=== PATIENT | female | born 1970 | race Caucasian/White ===

== ENCOUNTER → 2016-08-02 | Outpatient (CLI) | payer BC ==
[~2016-08-02] MED LIST: MULT-552
[2016-08-02 16:19] LABS: ADD SCAN DIFF NO
[2016-08-02 16:23] LABS: ADD UMIC YES; URINE BILIRUBIN (Dip) NEGATIVE (NEGATIVE); URINE BLOOD (Dip) 1+ (NEGATIVE); URINE COLOR LT. YELLOW (YELLOW); URINE GLUCOSE (Dip) NEGATIVE (NEGATIVE); URINE KETONES (Dip) NEGATIVE (NEGATIVE); URINE LEUKOCYTE ESTERASE (Dip) NEGATIVE (NEGATIVE); URINE NITRITE (Dip) NEGATIVE (NEGATIVE); URINE TOTAL PROTEIN (Dip) 2+ (NEGATIVE); URINE UROBILINOGEN (Dip) 0.2 E.U./dL (0.1-1.0)
[2016-08-02 16:25] LABS: BASOPHIL # 0.1 10^3/ul (0.0-0.1); EOSINOPHILS # 0.2 10^3/ul (0.0-0.5); EOSINOPHILS % 2.5 % (0.0-7.0); HEMATOCRIT 37.5 % (37.0-47.0); HEMOGLOBIN 12.4 g/dl (12.0-16.0); LYMPHOCYTES # 2.9 10^3/ul (0.8-2.9); LYMPHOCYTES % 29.8 % (15.0-51.0); MEAN CORPUSCULAR HEMOGLOBIN 30.2 pg (29.0-33.0); MEAN CORPUSCULAR HGB CONC 33.1 g/dl (32.0-37.0); MEAN CORPUSCULAR VOLUME 91.5 fl (82.0-101.0); MEAN PLATELET VOLUME 9.1 fl (7.4-10.4); MONOCYTE # 0.6 10^3/ul (0.3-0.9); MONOCYTES % 6.4 % (0.0-11.0); NEUTROPHIL # 5.8 10^3/ul (1.6-7.5); NEUTROPHILS % 59.7 % (39.0-77.0); PLATELET COUNT 278 10^3/UL (140-415); WHITE BLOOD COUNT 9.7 10^3/ul (4.8-10.8)
[2016-08-02 16:36] LABS: ALBUMIN 3.8 g/dl (3.3-4.9)
--- NOTE | 2016-08-02 16:36 | RADRPT ---
PROCEDURE: XR Chest. CLINICAL INDICATION: Anemia, cough TECHNIQUE: PA and lateral views of the chest were obtained COMPARISON: 12/30/2013 FINDINGS: The heart and mediastinum are within normal limits. The lungs are clear. There is no pleural effusion or pneumothorax. The bones and soft tissues are unremarkable. RPTAT: AA IMPRESSION: No acute disease. .Ralph Torres MD, MD Date Time Electronically viewed and signed by .Ralph Torres MD, on 08/02/2016 16:36 .S/
[2016-08-02 16:37] LABS: POTASSIUM 3.6 mmol/L (3.5-5.1)
[2016-08-02 16:38] LABS: SQUAMOUS EPITHELIAL CELL,UR MODERATE; URINE RBCS 0-2 /HPF (0)
[2016-08-02 16:39] LABS: ALBUMIN/GLOBULIN RATIO 1.22; BILIRUBIN,INDIRECT 0.2 mg/dl (0-1.1); BILIRUBIN,TOTAL 0.2 mg/dl (0.2-1.3); CREATININE 0.86 mg/dl (0.44-1.00); TOTAL PROTEIN 6.9 g/dl (6.1-8.1)
[2016-08-02 16:40] LABS: CALCIUM 8.5 mg/dl (8.4-10.2); INR 0.94; PROTIME 12.6 Sec (12.2-14.2)
--- NOTE | 2016-08-03 20:32 | RADRPT ---
Vent Rate: 64 bpm RR Interval: 0 msec MD Interval: 154 msec QRS Duration: 70 msec QT Interval: 408 msec QTC Interval: 420 msec P-R-T [place]: 64 - 45 - 30 degrees Normal sinus rhythm Normal ECG Electronically Signed By: Liu Zhang [id number]
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
== END | disposition home or self-care (01) ==
LOC: LAB 15:11
PROVIDERS: ATTEND Internal Medicine
DX: D64.9 Anemia, unspecified (principal); D68.9 Coagulation defect, unspecified; J20.9 Acute bronchitis, unspecified; R07.89 Other chest pain
CPT/HCPCS: 71020; 80053; 81001; 81003; 85025; 85610; 85730; 93005

== ENCOUNTER 2016-08-09 08:34 | Day surgery (SDC) | payer BC ==
[2016-08-09] VITALS (13 sets, daily range): BP systolic 136–175; BP diastolic 83–101; PULSE 59–114; RESP 14–18; Ht 154.9 cm; Wt 64.0 kg
[~2016-08-09] VITALS: Ht 154.9 cm; Wt 64.0 kg
[~2016-08-09 08:34] MED LIST changes: +DESFLURANE 15 MIN ONE; +EPHEDrine SULFATE 50 MG/5 ML SYG ONE
[2016-08-09] MEDS ORDERED: LATA2.5D2 BOTH EYES (09:52)
[2016-08-09] MEDS ORDERED: CEFAZOLIN 2 GM/50 ML (PMX) 50 ML IVPB ONE (10:00)
[2016-08-09] MEDS ORDERED: LACTATED RINGER'S 1,000 ML IV SCH ×2 (10:00→13:00)
[2016-08-09] MEDS ORDERED: BUPIVACAINE 0.25%/EPI (SDV) 30 ML INJ ONE (10:54)
[2016-08-09] MEDS ORDERED: PROPOFOL 20 ML ONE (11:24)
[2016-08-09] MEDS ORDERED: LIDOCAINE 100 MG SYRINGE ONE (11:24)
[2016-08-09] MEDS ORDERED: DEXAMETHASONE 4 MG/ML 1 ML INJ ONE (11:25)
[2016-08-09] MEDS ORDERED: MIDAZOLAM 1 MG/ML 2 ML INJ ONE (11:25)
[2016-08-09] MEDS ORDERED: FENTAnyl 50 MCG/ML VIAL ONE (11:25)
[2016-08-09] MEDS ORDERED: ONDANSETRON 4 MG INJ ONE (11:25)
--- NOTE | 2016-08-09 11:30 | HPN ---
Date/Time of Note Date/Time of Note DATE: 08/09/16 TIME: 11:30 Interval H&P Admission Note Pt. seen H&P reviewed: No system changes COLE CALVERT MD Aug 09, 2016 11:30
[2016-08-09] MEDS ORDERED: KETOROLAC 30 MG INJ ONE (11:32)
[2016-08-09] MEDS ORDERED: BUPIVACAINE 0.5%/EPI (SDV) 30 ML INJ ONE (11:33)
[2016-08-09] MEDS ORDERED: CEFAZOLIN 1 GM INJ ONE (11:34)
[2016-08-09] MEDS ORDERED: LIDOCAINE 1% (STERILE-PAK) 30 ML INJ ONE (11:47)
[2016-08-09] MEDS ORDERED: EPHEDrine SULFATE 50 MG/5 ML SYG IV PRN (12:00)
[2016-08-09] MEDS ORDERED: HYDROmorphONE (0.2 MG/ML) 10ML SYG IV PRN ×3 (12:00)
[2016-08-09] MEDS ORDERED: DIPHENHYDRAMINE 50 MG INJ IV PRN (12:00)
[2016-08-09] MEDS ORDERED: MEPERIDINE 25 MG INJ IV PRN (12:00)
[2016-08-09] MEDS ORDERED: MIDAZOLAM 1 MG/ML 2 ML INJ IV PRN (12:00)
[2016-08-09] MEDS ORDERED: TRIMETHOBENZAMIDE 100 MG/ML VIAL IM PRN (12:00)
[2016-08-09] MEDS ORDERED: FENTAnyl 50 MCG/ML VIAL IV PRN ×3 (12:00)
[2016-08-09] MEDS ORDERED: ONDANSETRON 4 MG INJ IV PRN ×2 (12:00→13:00)
[2016-08-09] MEDS ORDERED: hydrALAzine 20 MG INJ IV PRN (12:00)
[2016-08-09] MEDS ORDERED: LABETALOL HCL 20MG INJ IV PRN (12:00)
[2016-08-09] MEDS ORDERED: HYDROCODONE/APAP (5/325) TAB PO PRN ×2 (13:00)
[2016-08-09] MEDS ORDERED: morphine 2 MG INJ IV PRN (13:00)
--- NOTE | 2016-08-09 21:13 | OPR ---
Date/Time of Note Date/Time of Note DATE: 08/09/16 TIME: 21:07 Operative Report Procedure Date: Aug 09, 2016 Preoperative Diagnosis Forehead lesion Postoperative Diagnosis Skull bases bony lesion, 2 x 1 cm Operation Performed 1. Excisional and ostectomy of right forehead skull bony lesion, 2 x 1 cm 2. Local anesthetic injection, [address] Surgeon: COLE CALVERT MD Anesthesia: general, other (Local) Anesthesiologist: Deandre Hatch M.D. Estimated Blood Loss: 0 - 10 ml's Specimens Bony lesion Tubes/Drains None Complications: None Pt Condition Post Procedure: stable Disposition: PACU Indications 46-year-old female with a bony lesion on right forehead here for excision. Risks include but are not limited to bleeding, infection, abscess, seroma, chronic pain, wound, skull osteomyelitis, need for re-operations or further surgeries, [place], stroke, PE, DVT, pneumonia, organ failures, or even . Procedure Description Patient was brought in, placed supine on the operating table, and after induction of anesthesia, all pressure points were well-padded, and she was prepped and draped in usual sterile fashion. Preoperative antibiotics administered. Local anesthetic injected at surgical site. Incision was made in the skin line and extended to the skull where the bony lesion was apparent. Using rondure most of the specimen was excised and sent to pathology. [place] was then used to smooth out the surface of the skull. Hemostasis was obtained with electrocautery. Wound was thoroughly irrigated and closed in multiple layers with 2-0 Vicryl deep followed by 4-0 Monocryl subcuticular and then eventually Dermabond. Patient was extubated transferred to recovery in stable condition all counts were correct at the end the operation 2. Copies To: CC: EMILI DORADO MD, SAMUEL MD Aug 09, 2016 21:12
== END 2016-08-09 14:30 | disposition home or self-care (01) ==
LOC: SDS 08:34
PROVIDERS: ATTEND Surgery
DX: M89.9 Disorder of bone, unspecified (principal)
CPT/HCPCS: 21026; 84703; J0690; J1100; J1885; J2001; J2250; J2405; J3010

== ENCOUNTER 2017-04-23 09:47 | Emergency (ER) | payer BC ==
[~2017-04-23] VITALS: Ht 154.9 cm; Wt 63.6 kg
[~2017-04-23 09:47] MED LIST changes: -DESFLURANE 15 MIN ONE; -EPHEDrine SULFATE 50 MG/5 ML SYG ONE; +LATA2.5D2 BOTH EYES
[2017-04-23 09:50] VITALS: Ht 154.9 cm; Wt 63.6 kg
[2017-04-23] MEDS ORDERED: SOD CHLORIDE 0.9% 1,000 ML IV STA (10:15)
[2017-04-23] MEDS ORDERED: morphine 4 MG/ML VIAL IV STA ×2 (10:15→11:57)
[2017-04-23] MEDS ORDERED: ONDANSETRON 4 MG INJ IV STA ×2 (10:15→11:57)
[2017-04-23 10:53] LABS: BASOPHIL # 0.1 10^3/ul (0.0-0.1); BASOPHILS % 1.2 % (0.0-2.0); EOSINOPHILS # 0.2 10^3/ul (0.0-0.5); EOSINOPHILS % 2.6 % (0.0-7.0); HEMATOCRIT 40.8 % (37.0-47.0); HEMOGLOBIN 13.3 g/dl (12.0-16.0); LYMPHOCYTES # 1.9 10^3/ul (0.8-2.9); LYMPHOCYTES % 22.3 % (15.0-51.0); MEAN CORPUSCULAR HEMOGLOBIN 30.4 pg (29.0-33.0); MEAN CORPUSCULAR HGB CONC 32.6 g/dl (32.0-37.0); MEAN CORPUSCULAR VOLUME 93.2 fl (82.0-101.0); MEAN PLATELET VOLUME 9.6 fl (7.4-10.4); MONOCYTE # 0.6 10^3/ul (0.3-0.9); MONOCYTES % 6.7 % (0.0-11.0); NEUTROPHIL # 5.5 10^3/ul (1.6-7.5); NEUTROPHILS % 66.1 % (39.0-77.0); PLATELET COUNT 292 10^3/UL (140-415); RED BLOOD COUNT 4.38 10^6/ul (4.20-5.40); RED CELL DISTRIBUTION WIDTH 12.9 % (11.5-14.5); WHITE BLOOD COUNT 8.3 10^3/ul (4.8-10.8)
[2017-04-23 11:03] LABS: ADD UMIC YES; UR ASCORBIC ACID NEGATIVE (NEGATIVE); UR BILIRUBIN (Dip) NEGATIVE (NEGATIVE); UR BLOOD (Dip) NEGATIVE (NEGATIVE); UR CLARITY CLEAR (CLEAR); UR COLOR YELLOW (YELLOW); UR GLUCOSE (Dip) NEGATIVE (NEGATIVE); UR KETONES (Dip) NEGATIVE (NEGATIVE); UR LEUKOCYTE ESTERASE (Dip) NEGATIVE Leu/ul (NEGATIVE); UR NITRITE (Dip) NEGATIVE (NEGATIVE); UR RBC 1 /HPF (0-5); UR SPECIFIC GRAVITY (Dip) 1.012 (1.003-1.030); UR SQUAMOUS EPITHELIAL CELL FEW /HPF (FEW); UR TOTAL PROTEIN (Dip) 2+ mg/dl (NEGATIVE); UR UROBILINOGEN (Dip) NEGATIVE (NEGATIVE)
[2017-04-23 11:11] LABS: ALBUMIN 4.1 g/dl (3.3-4.9); ALBUMIN/GLOBULIN RATIO 1.36; BILIRUBIN,INDIRECT 0.5 mg/dl (0-1.1); BILIRUBIN,TOTAL 0.5 mg/dl (0.2-1.3); CALCIUM 8.6 mg/dl (8.4-10.2); CREATININE 0.94 mg/dl (0.44-1.00); POTASSIUM 3.9 mmol/L (3.5-5.1); TOTAL PROTEIN 7.1 g/dl (6.1-8.1)
--- NOTE | 2017-04-23 11:42 | RADRPT ---
PROCEDURE: CT ABDOMEN AND PELVIS WITHOUT CONTRAST. CLINICAL INDICATION: Abdominal pain TECHNIQUE: CT scan of the abdomen and pelvis without contrast was performed on a multidetector hig h-resolution CT scanner. The patient was scanned without intravenous contrast. Coronal and sagittal reformatted images were obtained from the axial source images. Images were reviewed on a high-resol eriQoo PACS workstation. The total exam CTDI equals 8.7 mGy and the total exam DLP equals 444.2 mGy-c m. One or more of the following dose reduction techniques were used: Automated exposure control. Adjustment of the mA and/or kV according to patient size. Use of iterative reconstruction technique. DICOM images are available COMPARISON: None FINDINGS: CT abdomen: The lung bases are clear. The heart size is within limits. There is no significant pericardial effus ion. Hepatic morphology is within limits. No gross contour deforming masses. Gallbladder is unremarkable. No evidence of intrahepatic or extrahepatic biliary dilatation. The spleen and pancreas are within normal limits. Both adrenal glands are within normal limits. Both kidneys are in normal anatomic position. No evidence of obstruction or hydronephrosis. No gross renal/ureteric calculi. The visualized GI tract demonstrate normal caliber loops of small and large bowel. No evidence of yahaira wel obstruction. The appendix is within normal limits. The unenhanced aorta is within normal limits. There is no significant retroperitoneal lymphadenopath y. CT pelvis: The bladder is within normal limits. The uterus is markedly enlarged measuring 16.6 x 8.9 x 8.4 cm, likely consistent with a leiomyomatous uterus. There is a large exophytic leiomyoma measuring 6.7 x 6.3 cm within the fundus of the uterus. Small amount of free fluid within the pelvis. There is a lef t adnexal mass measuring 3.4 x 3.0 cm, which also may represent an leiomyoma. The rectosigmoid colon is within normal limits. No significant pelvic lymphadenopathy. The visualized osseous structures appears to within normal limits. IMPRESSION: 1. Enlarged uterus, measuring 16.6 x 8.9 x 8.4 cm, likely consistent with a leiomyomatous uterus. Th ere is a large exophytic leiomyoma measuring 6.7 x 6.3 cm within the fundus of the uterus. There is also a 3.4 x 3.0 cm left adnexal mass, which also may represent an exophytic leiomyoma. Consider fol low-up MRI of the pelvis. 2. No evidence of acute intra-abdominal/pelvic inflammatory process. No obstruction. The appendix wi thin limits. 3. Small amount nonspecific free fluid within the pelvis. RPTAT: AAPP Physician Mic Date Time Electronically viewed and signed by Merced Cortez Physician on 04/23/2017 11:41 FLORY/
[2017-04-23] MEDS ORDERED: HYDR-906 PO (11:49)
[2017-04-23] MEDS ORDERED: ONDA4TAB14 PO (11:49)
--- NOTE | 2017-04-23 12:48 | RADRPT ---
PROCEDURE: US Pelvis. CLINICAL INDICATION: pelvic pain TECHNIQUE: Multiple sonographic images of the pelvis were obtained utilizing a transabdominal and endovaginal technique. The images were reviewed on a PACS workstation. COMPARISON: CT 04/23/2017; US PELVISA 08/12/2009 FINDINGS: The uterus is enlarged in size with a heterogeneous appearance of the myometrium. The uterus measur es 12.2 x 8.0 x 8.6 cm. There are multiple heterogeneous masses in the uterus. There is an intramura l mass in the body measuring 6.5 x 4.2 cm. There is an exophytic mass in the right side of the uteru s measuring 6.7 x 5.3 cm. The endometrial stripe is not seen. The ovaries are not seen. No free fluid is present within the pelvis. RPTAT: AA IMPRESSION: Enlarged uterus with multiple large fibroids. Large exophytic mass in the right side of the uterus s een on ultrasound, suspicious for a exophytic fibroid. Further evaluation with MRI of the pelvis wit h contrast is recommended. Ovaries and endometrium not visualized. .Ralph Torres MD, MD Date Time Electronically viewed and signed by .Ralph Torres MD, MD on 04/23/2017 12:48 .S/
[2017-04-23] MEDS ORDERED: HYDROmorphONE 0.5 MG/0.5 ML SYG IV STA ×2 (12:56→15:24)
--- NOTE | 2017-04-23 17:58 | RADRPT ---
PROCEDURE: MR Pelvis with and without IV contrast CLINICAL INDICATION: Pelvic pain. Fibroid uterus. TECHNIQUE: MRI of the pelvis was performed on a 1.5 Lou MR scanner. The patient was scanned both before and following the uncomplicated intravenous administration of 10 ml of Magnevist. COMPARISON: Pelvic ultrasound 04/23/2017./pelvis CT 04/23/2017. FINDINGS: Patient motion artifacts on some of the images. Postoperative changes present. The uterus is enlarged and contains multiple heterogeneous masses thought to be leiomyomata. The lar gest uterine mass measures approximately 6.8 x 5.5 x 6.5 cm, is in the right side of the uterus, and displaces/deforms the endometrium. One of these uterine masses is subserosal in the fundus and fran ures 5.5 x 4.8 x 5.5 cm. 3.4 x 2.2 x 3.4 cm enhancing slightly long T2 finding most likely is subser osal from the left uterine fundus abuts what most likely is the left ovary which contains a 1.9 x 1. 4 x 1.7 cm cyst. 3.4 x 2.4 x 2.8 cm enhancing soft tissue finding is inseparable from the right lower uterine segment and could be a subserosal versus pedunculated leiomyoma; this finding has restricted diffusion. Alt ernatively, it could represent a right adnexal mass. 5.7 x 2.3 x 5.9 cm non-enhancing abnormality posterior to the right uterus is heterogeneous includin g areas of short T2 signal (possible blood products) as well as two or three peripheral small cysts; what may represent the right fallopian tube is inseparable from this finding. This abnormality abut s sigmoid colon but is not unequivocally a bowel loop. Pelvic distortion secondary to the uterine masses. The cervix is unremarkable except for a few small Nabothian cysts.. The partially distended bladder is compressed by the enlarged uterus and soft tissue finding insepar able from the right lower uterine segment. Small amount of free pelvic fluid and small amount of fluid in both pericolic gutters. No enlarged l ymph nodes identified. No suspicious osseous abnormality detected. IMPRESSION: 1. Enlarged uterus containing multiple masses which likely are leiomyomata. Small amount of free pel altaf fluid as well as small amount of fluid and both pericolic gutters. 2. Nonenhancing abnormality that contains small peripheral cysts is in the right pelvis posterior t o the uterus; differential considerations include right ovarian torsion as well as other adnexal mas s; this is less likely to be related to bowel. 3. Soft tissue enhancing finding inseparable from the lower right uterine segment probably represent s pedunculated versus subserosal leiomyoma; alternatively, this could represent right adnexal mass o r (less likely) [place] right ovary. 4. What most likely represents the left ovary contains a small cyst and abuts the presumed left fun cars[place] subserosal leiomyoma. Report called to the emergency room physician caring for the patient on 04/23/2017 at 1745 hours. RPTAT: TT Yessy Moya Physician Date Time Electronically viewed and signed by Yessy Moya Physician on 04/23/2017 17:58 JS/
--- NOTE | 2017-04-23 19:19 | ERD ---
ER Documentation Chief Complaint Chief Complaint right lower abdominal pain and vomiting since this morning HPI 46 year old female with history of fibroids and myomectomy presents to the emergency department complaining of severe sharp onset right lower quadrant pelvic pain since this morning. Patient states she had one episode of nonbilious nonbloody vomiting. Denies fevers, diarrhea. ROS All systems reviewed and are negative except as per history of present illness. Medications Home Meds Active Scripts Ondansetron (Ondansetron Odt) 4 Mg Tab.rapdis, 4 MG PO Q6H Y for NAUSEA AND/OR VOMITING, #10 TAB Prov:FAVIAN BANKS PA-C 04/23/17 Hydrocodone/Acetaminophen ([place] 5-325 Tablet) 1 Each Tablet, 1 TAB PO Q6H Y for PAIN, #30 TAB Prov:FAVIAN BANKS PA-C 04/23/17 Reported Medications Latanoprost (Latanoprost) 2.5 Ml Drops, 1 DROP BOTH EYES QHS, #1 BOTTLE 08/09/16 Multivitamins* (Once Daily*) 1 Tab Tablet 07/11/10 Allergies Allergies: Coded Allergies: No Known Allergy (Verified , 08/09/16) PMhx/Soc History of Surgery: Yes (MYOMECTOMY) Anesthesia Reaction: No Hx Neurological Disorder: No Hx Respiratory Disorders: No Hx Cardiac Disorders: No Hx Psychiatric Problems: No Hx Miscellaneous Medical Probl: Yes (HIGH CHOLESTEROL) Hx Alcohol Use: No Hx Substance Use: No Hx Tobacco Use: No Smoking Status: Never smoker Physical Exam Vitals Vital Signs Date Time Temp Pulse Resp B/P Pulse Ox O2 Delivery O2 Flow Rate FiO2 04/23/17 09:50 97.6 69 18 153/87 100 Physical Exam GENERAL: well-developed/well-nourished, in no apparent distress, non-toxic appearing HENT: NC/AT, moist mucous membranes EYES: Conjunctiva normal NECK: Supple, no lymphadenopathy PULM: CTA bilaterally, no rales, rhonchi, or wheezing heard CV: Normal S1S2, RRR, good capillary refill GI: Soft, non-distended, tender to palpation RLQ and pelvic region bilaterally Normal bowel sounds, no masses or organomegaly felt on exam No gross peritonitis, no bruits Negative Rovsing, negative [place], negative McBurney's point, Negative CVAT BACK: No masses EXT: No clubbing, cyanosis, or edema NEURO: Alert and Orientated SKIN: Intact, normal turgor PSYCH: Normal mood and mentation Result Diagram: 04/23/17 1025 04/23/17 1025 Results 24 hrs Laboratory Tests Test 04/23/17 10:25 White Blood Count 8.310^3/ul Red Blood Count 4.3810^6/ul Hemoglobin 13.3g/dl Hematocrit 40.8% Mean Corpuscular Volume 93.2fl Mean Corpuscular Hemoglobin 30.4pg Mean Corpuscular Hemoglobin Concent 32.6g/dl Red Cell Distribution Width 12.9% Platelet Count 30428^3/UL Mean Platelet Volume 9.6fl Neutrophils % 66.1% Lymphocytes % 22.3% Monocytes % 6.7% Eosinophils % 2.6% Basophils % 1.2% Nucleated Red Blood Cells % 0.0/100WBC Neutrophils # 5.510^3/ul Lymphocytes # 1.910^3/ul Monocytes # 0.610^3/ul Eosinophils # 0.210^3/ul Basophils # 0.110^3/ul Nucleated Red Blood Cells # 0.010^3/ul Urine Color YELLOW Urine Clarity CLEAR Urine pH 6.0 Urine Specific [place] 1.012 Urine Ketones NEGATIVEmg/dL Urine Nitrite NEGATIVEmg/dL Urine Bilirubin NEGATIVEmg/dL Urine Urobilinogen NEGATIVEmg/dL Urine Leukocyte Esterase NEGATIVELeu/ul Urine Microscopic RBC 1/HPF Urine Microscopic WBC 2/HPF Urine Squamous Epithelial Cells FEW/HPF Urine Hemoglobin NEGATIVEmg/dL Urine Glucose NEGATIVEmg/dL Urine Total Protein 2+mg/dl Sodium Level 139mmol/L Potassium Level 3.9mmol/L Chloride Level 103mmol/L Carbon Dioxide Level 25mmol/L Anion Gap 15 Blood Urea Nitrogen 14mg/dl Creatinine 0.94mg/dl Glucose Level 98mg/dl Calcium Level 8.6mg/dl Total Bilirubin 0.5mg/dl Direct Bilirubin 0.00mg/dl Indirect Bilirubin 0.5mg/dl Aspartate Amino Transf (AST/SGOT) 15IU/L Alanine Aminotransferase (ALT/SGPT) 26IU/L Alkaline Phosphatase 99IU/L Total Protein 7.1g/dl Albumin 4.1g/dl Globulin 3.00g/dl Albumin/Globulin Ratio 1.36 Lipase 161U/L Current Medications Medications (Trade) Dose Ordered Sig/Renetta Route PRN Reason Start Time Stop Time Status Last Admin Dose Admin Sodium Chloride (NS) 1,000 ml @ 1,000 mls/hr Q1H STAT IV 04/23/17 10:15 04/23/17 11:14 DC 04/23/17 10:25 Morphine Sulfate (morphine) 4 mg ONCE STAT IV 04/23/17 10:15 04/23/17 10:17 DC 04/23/17 10:25 Ondansetron HCl (Zofran Inj) 4 mg ONCE STAT IV 04/23/17 10:15 04/23/17 10:17 DC 04/23/17 10:25 Morphine Sulfate (morphine) 4 mg ONCE STAT IV 04/23/17 11:57 04/23/17 11:58 DC 04/23/17 12:03 Ondansetron HCl (Zofran Inj) 4 mg ONCE STAT IV 04/23/17 11:57 04/23/17 11:58 DC 04/23/17 12:02 Hydromorphone HCl (Dilaudid) 0.5 mg ONCE STAT IV 04/23/17 12:56 04/23/17 12:57 DC 04/23/17 13:02 Hydromorphone HCl (Dilaudid) 0.5 mg ONCE STAT IV 04/23/17 15:24 04/23/17 15:25 DC 04/23/17 15:29 Procedures/MDM 46 year old female with history of fibroids and myomectomy presents to the emergency department with severe right lower quadrant likely due to large multiple fibroids and right ovarian torsion cannot be excluded at this time. First pelvic ultrasound was done and cannot visualize ovaries and radiologist suggested MRI, there was ,nonenhancing abnormality that contains small peripheral cysts is in the right pelvis posterior to the uterus which is likely adnexal vs torsion. I have consulted OB laborist who suggested repeat pelvic ultrasound and they will also evaluate patient. Patient will be passed down to for further follow up. In the ED, patient's pain. Lab work was drawn. CBC did not show any evidence of leukocytosis or anemia. CMP did not show any evidence of renal, liver, or electrolyte abnormalities. Lipase was normal. UA did not show any evidence of hemoglobin or urinary tract infection. Pelvic ultrasound Enlarged uterus with multiple large fibroids. Large exophytic mass in the right side of the uterus seen on ultrasound, suspicious for a exophytic fibroid. Further evaluation with MRI of the pelvis with contrast is recommended. Ovaries and endometrium not visualized. CT abd and pelvis 1. Enlarged uterus, measuring 16.6 x 8.9 x 8.4 cm, likely consistent with a leiomyomatous uterus. There is a large exophytic leiomyoma measuring 6.7 x 6.3 cm within the fundus of the uterus. There is also a 3.4 x 3.0 cm left adnexal mass, which also may represent an exophytic leiomyoma. Consider follow-up MRI of the pelvis. 2. No evidence of acute intra-abdominal/pelvic inflammatory process. No obstruction. The appendix within limits. 3. Small amount nonspecific free fluid within the pelvis. MRI with contrast 1. Enlarged uterus containing multiple masses which likely are leiomyomata. Small amount of free pelvic fluid as well as small amount of fluid and both pericolic gutters. 2. Nonenhancing abnormality that contains small peripheral cysts is in the right pelvis posterior to the uterus; differential considerations include right ovarian torsion as well as other adnexal mass; this is less likely to be related to bowel. 3. Soft tissue enhancing finding inseparable from the lower right uterine segment probably represents pedunculated versus subserosal leiomyoma; alternatively, this could represent right adnexal mass or (less likely) [place] right ovary. 4. What most likely represents the left ovary contains a small cyst and abuts the presumed left fundal subserosal leiomyoma. Report called to the emergency room physician caring for the patient on 2016 at 1745 hours. Departure Diagnosis: Primary Impression: Leiomyoma Additional Impression: Abdominal pain Condition: Stable Patient Instructions: Abdominal Pain, What Are Fibroids?, Uterine Fibroids Additional Instructions: FOLLOW UP WITH YOUR PRIMARY CARE PHYSICIAN TOMORROW.Return to this facility if you are not improving as expected. Take all medicines as directed. Return to this facility if you are not improving as expected. You have been given a medicine which may cause drowsiness.DO NOT DRIVE OR OPERATE DANGEROUS MACHINERY while taking this medicine! FAVIAN BANKS PA-C Apr 23, 2017 19:06
[2017-04-23 19:39] VITALS: BP 150/89; PULSE 78; RESP 18; TEMP 98.3
[2017-04-23] MEDS ORDERED: HYDROmorphONE 1 MG/ML SYG IV STA (19:41)
--- NOTE | 2017-04-23 19:46 | RADRPT ---
PROCEDURE: US Pelvis. CLINICAL INDICATION: Pelvic pain TECHNIQUE: Transabdominal and transvaginal pelvic ultrasound are performed. COMPARISON: Dictated report from ultrasound dated 2009 FINDINGS: The uterus is normal in heterogeneous and anteverted in orientation. The uterus measures 11.7 x 7.2 x 9.9 cm. There are multiple large fibroids. Largest fibroid measures 6.7 x 5.5 x 6 cm. Compared t o previous dictation these fibers of increased in size. The visualized segments of the endometrium i nterval 1.0 cm. The right ovary is not definitively seen. There is a 3 .4 cm structure in the right adnexal region w hich may represent exophytic fibroid versus ovary. A normal left ovary is identified with normal Dop pler flow. The left ovary measures 3.2 x 2.8 x 2.4 cm. There is complex free fluid in the right megan pelvis with debris/clot within it. IMPRESSION: 1. Enlarged fibroid uterus. Compared to the dictation from 2010, the fibroids are substantially lar gavino 2. Mass-like density in the right adnexal region which may represent an exophytic fibroid or atypic al ovary. Pelvic MRI is recommended for further evaluation. 3. Normal left ovary with normal Doppler flow. 4. Small free fluid in the right adnexal region with debris/blood RPTAT: HH .Que White MD, MD Date Time Electronically viewed and signed by .Que White MD, on 04/23/2017 19:46 .W/
[2017-04-23] MEDS ORDERED: IBUP800T25 PO (20:52)
--- NOTE | 2017-04-23 20:52 | EN ---
Date/Time of Note Date/Time of Note DATE: 04/23/17 TIME: 20:47 ER Progress Note This patient was handed off to me by LAZARUS Bear. After results I called OB/ REDUCER to evaluate the patient. Dr. Leggett came down and evaluated the patient herself. Stated that she recommends outpatient management with close follow- up. Patient has verbalized she understands the status of her condition and the aforementioned instructions. Patient will be discharged with [place] 5/325 mg, Zofran 4 mg ODT, and ibuprofen 800 mg prescriptions. I have ran the case again by my attending. Stable and appropriate for discharge. SANJIV YOUNGBLOOD PA-C Apr 23, 2017 20:52
--- NOTE | 2017-04-23 23:13 | CONS ---
DATE OF ADMISSION: 04/23/2017 DATE OF CONSULTATION: 04/23/2017 Dear Khoi Cole, Thank you very much for allowing me to participate in the care of your patient. HISTORY OF PRESENT ILLNESS: As you know, she is 46 years old, 0, who presented to emergency department with complaint of abdominal pain. She denies nausea, vomiting, shortness of breath, chest pain, diarrhea or constipation. She states has uterine myoma for years, had diagnostic laparoscopy, then laparotomy for myomectomy in 2009. She states her periods were regular until 1 year ago. Her menses currently has interval of 2 months and duration of 4 to 5 days. She denies heavy menses. PAST MEDICAL HISTORY: Hypertension and bilateral glaucoma. PAST SURGICAL HISTORY: Diagnostic laparoscopy and myomectomy in 2009. OBSTETRIC HISTORY: Nulligravida. FAMILY HISTORY: Mother with colon and renal cancer. Father with Hodgkin lymphoma. Maternal aunt with uterine and liver cancer. Maternal grandmother with stomach cancer. SOCIAL HISTORY: She is . She denies tobacco, alcohol or drug use. ALLERGIES: NO KNOWN DRUG ALLERGIES. MEDICATIONS: 1. Losartan 50 mg daily. 2. Latanoprost eye drops. PHYSICAL EXAMINATION: VITAL SIGNS: Blood pressure 120/78, pulse rate 80/minute, respiratory rate 18/ minute, temperature 99.6. GENERAL: Comfortable, no acute distress, appropriate mood and affect. HEART: Regular rhythm and rate. No murmur. LUNGS: Clear to auscultation bilateral. ABDOMEN: Soft, nontender. No rebound or organomegaly. FLANKS: No CVA tenderness bilateral. EXTREMITIES: No edema, cyanosis, thigh or calf tenderness bilateral. PELVIC: External genitalia within normal limits. Vagina with no abnormal discharge or bleeding. Cervix nulliparous. Uterus 16 weeks, mobile with mild tenderness. Adnexa, no palpable mass bilateral. EVALUATION IN EMERGENCY DEPARTMENT: 1. CT scan: Enlarged uterus with multiple large fibroids. Large exophytic mass in right side of the uterus seen, which was suspicious to exophytic fibroids. Further evaluation with MRI is recommended. Ovaries and endometrium not visualized. 2. MRI: - Enlarged uterus containing multiple masses which likely are leiomyoma. Small amount of free pelvic fluid, as well as small amount of fluid in pericolic gutters. - Nonenhancing abnormality that contains small peripheral cysts in the right pelvis posterior to the uterus. Differential considerations including right ovarian torsion, as well as other adnexal masses. - Soft tissue enhancing at the lower right uterine segment, probably represents pedunculated versus subserosal leiomyoma. Alternatively, this could represent right adnexal mass (less likely). - What most likely represents the left ovary contained a small cyst and abuts the presumed left fundal subserosal leiomyoma. Pelvic ultrasound: Enlarged uterus with multiple large fibroids, large exophytic mass in the right side of uterus seen on ultrasound, suspicious for exophytic fibroid. Ovaries and endometrium not visualized. ASSESSMENT AND PLAN: A 46-year-old, 0 with multiple uterine leiomyoma, with abdominal pain. There is a possibility of degeneration in leiomyoma. The patient received morphine in emergency department. Currently, she is hemodynamically stable. She has mild pain at this time. Lab result, ultrasound evaluation, management and treatment options discussed in detail with patient and her . All of their questions answered. They expressed understanding. She was discharged home in stable condition with [place] and Motrin. She is a patient of Dr. Lockwood, she will call to make an appointment with Dr. Lockwood as soon as possible tomorrow. I also contacted Dr. Lockwood and inform her. She also needs genetic testing for Yee syndrome due to multiple family member with cancer. Dictated By: KIERRA BLACK/MEGHANN Conf#: [id number] DID#: [id number] CC: ;*EndCC* MTDD
== END 2017-04-23 20:56 | disposition home or self-care (01) ==
LOC: FTE 09:47
DX: D25.9 Leiomyoma of uterus, unspecified (principal); R10.2 Pelvic and perineal pain
CPT/HCPCS: 36415; 72196; 74176; 76830; 76856; 80053; 81001; 83690; 85025; 96374; 96375; 96376; 99285; J1170; J2270; J2405; J7030

== ENCOUNTER 2017-04-27 06:14 | Inpatient (IN) | payer BC ==
[2017-04-26 11:13] VITALS: Ht 154.9 cm; Wt 60.8 kg
[2017-04-27] VITALS (29 sets, daily range): BP systolic 108–146; BP diastolic 64–94; PULSE 89–112; RESP 14–28
[~2017-04-27] VITALS: Ht 154.9 cm; Wt 60.8 kg
--- NOTE | 2017-04-27 01:31 | HP ---
Date/Time of Note Date/Time of Note DATE: 04/27/17 TIME: 01:25 Assessment/Plan VTE Prophylaxis VTE Prophylaxis Intervention: ambulation, SCD's Lines/Catheters IV Catheter Type (from Nrsg): Peripheral IV Central line still needed: No Urinary Cath still in place: No Assessment/Plan Chief Complaint/Hosp Course Large fibroid uterus with severe pelvic pain. Problems: Assessment/Plan REGINO, with possible uni- or bi-lateral oophorectomy if cause is present at surgery. HPI/ROS Admit Date/Time Admit Date/Time Apr 27, 2017. Hx of Present Illness 46 y.o. A1 with known fibroids and a prior h/o a myomectomy with large fibroids with a uterus measuring 16 cm and moderate to severe pelvic pain, especially acute over the last few days. ROS On narcotics for severe lower abdominal pain since a visit to the ER earlier this week Constitutional: no complaints Respiratory: no complaints Cardiovascular: no complaints Gastrointestinal: no complaints Genitourinary: no complaints Musculoskeletal: no complaints Skin: no complaints Psychological: nl mood/affect, no complaints Additional Comments Pt has had moderate to severe pain for 3 days for which she went to the ER 3 days ago. PMH/Family/Social Past Medical History Medical History: hypertension, other (glaucoma) Past Surgical History Unsuccessful LSC to remove fibroids. Prior myomectomy 2006 with me. Family History Significant Family History: cancer (mother-colon CA), diabetes (mother), hypertension (mother) Social History Alcohol Use: none Smoking Status: Never smoker Drug Use: none Exam/Review of Systems Exam Constitutional: alert, oriented, well developed Psych: nl mood/affect, no complaints Head: atraumatic, normocephalic Respiratory: clear to auscultation Cardiovascular: nl pulses, regular rate and rhythm Gastrointestinal: nl liver, spleen, non-tender, soft, tender (lower abdomen, right>left) Genitourinary - Female: nl adnexae, nl external genitalia, uterus (Palpable abdominally c/w 16 weeeks size.) Extremities: normal pulses Neurological: LEGAL NURSE CONSULTANT II-XII intact Medications Medications Losartan 50 mg q day. Latanoprost one drop to each eye q day. CLAY KILGORE MD Apr 27, 2017 01:31
[~2017-04-27 06:14] MED LIST changes: +HYDR-906 PO; +IBUP800T25 PO; +ONDA4TAB14 PO
[2017-04-27] MEDS ORDERED: CEFAZOLIN 2 GM/50 ML (PMX) 50 ML IVPB ONE (06:30)
[2017-04-27] MEDS ORDERED: LACTATED RINGER'S 1,000 ML IV SCH (06:30)
[2017-04-27] MEDS ORDERED: morphine SULFATE/PF (10 MG/10 ML) INJ ONE (07:53)
[2017-04-27] MEDS ORDERED: PHENYLephrine (100 MCG/ML) 5ML SYG ONE ×2 (08:37→09:09)
[2017-04-27] MEDS ORDERED: PROPOFOL 20 ML ONE (08:51)
[2017-04-27] MEDS ORDERED: SUGAMMADEX SODIUM 200 MG/2 ML VIAL IV ONE (08:51)
[2017-04-27] MEDS ORDERED: LIDOCAINE 2% (SDV) 5 ML INJ ONE (08:51)
[2017-04-27] MEDS ORDERED: CEFAZOLIN 1 GM INJ ONE (08:51)
[2017-04-27] MEDS ORDERED: SUCCINYLCHOLINE CHLORIDE 100 MG/5 ML SYG IV ONE (08:51)
[2017-04-27] MEDS ORDERED: ROCURONIUM 50 MG INJ ONE (08:51)
[2017-04-27] MEDS ORDERED: METOCLOPRAMIDE 10 MG INJ IV PRN (09:30)
[2017-04-27] MEDS ORDERED: DIPHENHYDRAMINE 50 MG INJ IV PRN (09:30)
[2017-04-27] MEDS ORDERED: HYDROmorphONE (0.2 MG/ML) 10ML SYG IV PRN ×2 (09:30)
[2017-04-27] MEDS ORDERED: ONDANSETRON 4 MG INJ IV PRN ×2 (09:30→12:00)
[2017-04-27] MEDS ORDERED: FENTAnyl 50 MCG/ML VIAL IV PRN (09:30)
[2017-04-27] MEDS ORDERED: MEPERIDINE 25 MG INJ IV PRN (09:30)
[2017-04-27] MEDS: HYDROmorphONE (0.2 MG/ML) 10ML SYG IV PRN ×3 (11:10→11:31)
[2017-04-27] MEDS: LACTATED RINGER'S 1,000 ML IV SCH ×3 (11:38→21:38)
[2017-04-27] MEDS: FENTAnyl 50 MCG/ML VIAL IV PRN ×2 (11:44→11:59)
--- NOTE | 2017-04-27 11:54 | OPR ---
Date/Time of Note Date/Time of Note DATE: 04/27/17 TIME: 11:51 Operative Report Procedure Date: Apr 27, 2017 Preoperative Diagnosis Uterine fibroids, pelvic pain. Postoperative Diagnosis Uterine fibroids, right adnexal torsion, pelvic adhesions. Operation/Procedure Performed Supracervical hysterectomy, right salpingoophorectomy, left salpingectomy, lysis of adhesions. Surgeon see signature line Orange Picker Machine Operator Chelsey Moody MD Anesthesia Type: general, spinal Anesthesiologist: RAYMON BRIONES Estimated Blood Loss: 150 - 200 ml's Transfusion none Specimen Uterus without cervix, right tube and ovary, left tube. Grafts/Implants none Complications Left ureter appears to come close to the suture line on the cervix so left the cervix in. There were a lot of adhesion with bowel overlying everything in the left CDS so did not dissect the area. Will evaluate post-op. Pt Condition Post Procedure: stable Disposition: PACU Procedure Description Pt was brought to the OR and placed on the OR table. A spinal was given for post -op pain and then the pt was put to sleep. A manzo catheter was placed and she was prepped and draped in the usual sterile fashion. A knife was used to incise the prior scar down to the level of the fascia and scissors were used to extend the incision b/l. Kochers were used to grasp the anterior fascia and the fascia was from the underlying muscle using the bovie and blunt dissection. This was repeated at the lower edge of the incision as well. The rectus muscles and peritoneum were at midline with a knife until the peritoneum could be entered with the surgeons fingers. There were several adhesions between the peritoneum and omentum which were taken down in order to proceed. The incision was stretched open using hands. The uterus was grasped and elevated through the incision. It was bulky and filled with multiple moderate sized fibroids. The left ovary was located and appeared normal overall except for a small external cyst and the ovary was stuck to the left side of the uterus. The right ovary was located and was swollen, necrotic, torsed 1080 degrees and wedged down behind the uterus. There did not appear to be any obvious cysts present to account for the cause of the torsion. 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 Grabbed the left round ligament, cut it with cautery and suture ligated it. Opened the broad ligament and skeletonized the vessels and dissected the ovary off the uterus and pushed a finger through the broad ligament to make a window, then clamped across the pedicle, cut and suture ligated the pedicle. Placed a clamp across the uterine vessels snug up to the uterus. The tissue was cut and a Ike stitch was placed. Repeated this one more time on the left side. On the right side the bladder flap was completely developed and the same thing was done to capture the uterine vessels. The uterus was then cut off using a knife. A retractor was then placed and the bowel was pushed back with moist laps. The vessels were followed down til we were close to the cervix and when following the ureters saw that the left one coursed up very near the cervix although the bladder flap was well developed and pushed down. Decided to leave the cervix in placed as the scar tissue overlying the area included the ureters and bowel that was adherent to the left CDS so did not feel the area could be safely dissected. Cut off the rest of the lower uterine segment just above the cervix and sewed over the cervix in 2 layers with 0 chromic. Then removed the right adnexa with 2 clamps underlying the necrotic area, cutting and suture ligating with 0 chromic.The left tube was edematous so placed 2 peons along it and cut it off and suture ligated the base. Had to place a few additional stitches on the cervix for hemostasis. Irrigated the abdomen well and when convinced that it was dry removed the packing and retractor and a lap count was done which was correct. There was a small fat pad on the bowel adjacent to the prior right adnexa that was edematous. The bowel proximal to this felt very normal and no masses were felt. The appendix was clearly seen and normal. Interceed was placed over the left ovary and Surgicel was placed over the cuff. The anterior peritoneum was closed. The fascia was then closed with 0 Vicryl. The incision was irrigated well and the subcutaneous layer was closed with 2-0 chromic. The skin was then closed with 3-0 Monocryl in a subcuticular stitch. Steristrips with Mastisol were placed and a pressure dressing was applied over all. The pt was awakened from general anesthesia and transferred to the recovery room. CLAY KILGORE MD Apr 27, 2017 11:54
[2017-04-27] MEDS ORDERED: IOHEXOL 14.3 MG(I)/ML (ADULT) BTL PO ONE (12:00)
[2017-04-27] MEDS: CEFAZOLIN 2 GM/50 ML (PMX) 50 ML IVPB SCH ×3 (14:00→23:21)
[2017-04-27] MEDS: BARIUM SULF 2% 450 ML BTL (BERRY SMOOTHIE) PO ONE ×2 (15:00→15:54)
[2017-04-27] MEDS ORDERED: IOHEXOL 300MG/ML 150 ML BTL ONE (15:14)
[2017-04-27] MEDS ORDERED: SOD CHLORIDE 0.9% 100 ML ONE (15:14)
[2017-04-27] MEDS: OXYCODONE/ACETAMINOPHEN (5/325) TAB PO PRN ×2 (17:55→23:29)
--- NOTE | 2017-04-27 21:04 | RADRPT ---
PROCEDURE: CT Urogram without and with contrast. CLINICAL INDICATION: Possible left ureteral injury. Postoperative evaluation after supracervical hy sterectomy with extensive adhesions in the pelvis. TECHNIQUE: CT of the abdomen and pelvis was performed before and after the uneventful intravenous a dministration of 100 cc of Omnipaque-300. Coronal reformatted images were obtained from the axial s ource images. Delayed CT imaging was obtained during the renal excretory phase. The total exam CTDI equals 9.2, 8.87, 9.33 mGy and the total exam DLP equals 1275.38 mGy-cm. DICOM images are available. One or more of the following dose reduction techniques were used: - Automated exposure control. - Adjustment of the mA and/or kV according to patient size. - Use of iterative reconstruction technique. COMPARISON: Pelvic ultrasound and MRI dated 04/23/[address] dated 04/23/2017. FINDINGS: Genitourinary system and adrenal glands: There are no radiopaque stones within the kidneys, ureters , or bladder. There is no hydronephrosis or renal mass. There are no filling defects within the best l collecting systems, ureters, and opacified bladder. There is no contrast extravasation to suggest a urine leak. There is a Victoria catheter within the urinary bladder, which contains a small amount of air. There is postoperative change related to supracervical hysterectomy. The adrenal glands are un remarkable. Visualized lower thorax: There is dependent parenchymal disease at both lung bases, likely atelecta sis. The visualized heart is unremarkable. Hepatobiliary system and spleen: The liver is normal in size and density with no focal hepatic lesi on identified. There is no intra or extrahepatic biliary ductal dilatation. The gallbladder is unrem arkable. The spleen is unremarkable. The pancreas is unremarkable. Gastrointestinal system: There is wall thickening of the cecum and rectum, which is nondilated. The re is no evidence of bowel obstruction. There is nonspecific focal dilatation of the distal appendix measuring 9 mm diameter. The remaining portions of the appendix are nondilated unremarkable. Peritoneum, vascular, and lymphatics: There is free air scattered throughout the abdomen. There is inflammatory change and fluid scattered throughout the mid and lower abdomen and pelvis. There is a small amount of simple-appearing fluid near along the right pericolic gutter and there are subacute blood products extending from the medial inferior right abdomen into the right and posterior pelvis. There is no mesenteric or retroperitoneal adenopathy. The aorta is nonaneurysmal. Musculoskeletal system and soft tissues: There are no concerning osseous lesions. There is subcuta neous emphysema within the ventral lower abdominal and pelvic fat with no focal drainable collection . IMPRESSION: 1. Unremarkable appearance of the upper and lower urinary tracts with no evidence of ureteral injur y, as questioned. Victoria catheter within the urinary bladder, which contains some air. 2. Postoperative change related to supracervical hysterectomy with inflammatory change in the mid a bdomen and pelvis, simple fluid tracking along the right pericolic gutter, and subacute blood produc ts extending from the medial right lower abdomen into the right and posterior pelvis. Scattered free air throughout the abdomen as well as subcutaneous emphysema within the ventral abdominal and pelvi c soft tissues. 3. Dependent parenchymal disease at both lung bases, likely atelectasis. Early pneumonia is not exc luded and follow-up can be performed as clinically warranted. RPTAT: HLBP .Jacob Dale MD, MD Date Time Electronically viewed and signed by .Jacob Dale MD, on 04/27/2017 21:04 .P/
[2017-04-27] MEDS ORDERED: LOSA50TA6 PO (23:45)
[2017-04-28] MEDS: IBUPROFEN 800 MG TAB PO PRN ×3 (02:25→23:56)
[2017-04-28 02:39] VITALS: BP 123/75; RESP 16
[2017-04-28] MEDS: LACTATED RINGER'S 1,000 ML IV SCH ×3 (06:01→17:45)
[2017-04-28] MEDS: CEFAZOLIN 2 GM/50 ML (PMX) 50 ML IVPB SCH (06:02)
[2017-04-28 06:04] VITALS: PULSE 88
[2017-04-28 06:16] LABS: BASOPHIL # 0.1 10^3/ul (0.0-0.1); BASOPHILS % 0.4 % (0.0-2.0); EOSINOPHILS # 0.1 10^3/ul (0.0-0.5); EOSINOPHILS % 0.6 % (0.0-7.0); HEMATOCRIT 32.4 % (37.0-47.0); HEMOGLOBIN 10.6 g/dl (12.0-16.0); LYMPHOCYTES # 1.5 10^3/ul (0.8-2.9); LYMPHOCYTES % 12.2 % (15.0-51.0); MEAN CORPUSCULAR HEMOGLOBIN 30.5 pg (29.0-33.0); MEAN CORPUSCULAR HGB CONC 32.7 g/dl (32.0-37.0); MEAN CORPUSCULAR VOLUME 93.1 fl (82.0-101.0); MEAN PLATELET VOLUME 9.2 fl (7.4-10.4); MONOCYTE # 1.1 10^3/ul (0.3-0.9); MONOCYTES % 9.1 % (0.0-11.0); NEUTROPHIL # 9.4 10^3/ul (1.6-7.5); PLATELET COUNT 267 10^3/UL (140-415); RED BLOOD COUNT 3.48 10^6/ul (4.20-5.40); RED CELL DISTRIBUTION WIDTH 13.2 % (11.5-14.5); WHITE BLOOD COUNT 12.2 10^3/ul (4.8-10.8)
[2017-04-28 06:57] LABS: CALCIUM 8.1 mg/dl (8.4-10.2); CREATININE 0.97 mg/dl (0.44-1.00); POTASSIUM 3.7 mmol/L (3.5-5.1)
[2017-04-28 07:27] VITALS: BP 112/69; RESP 14
[2017-04-28] MEDS: LOSARTAN 50 MG TAB PO SCH (08:19)
[2017-04-28] MEDS: OXYCODONE/ACETAMINOPHEN (5/325) TAB PO PRN ×3 (12:06→21:37)
[2017-04-28 15:02] VITALS: BP 122/80; RESP 12
[2017-04-28 20:00] VITALS: BP 137/85; PULSE 100; RESP 18
[2017-04-28] MEDS ORDERED: LATANOPROST 0.005% 2.5 ML OPH BOTH EYES SCH (21:00)
--- NOTE | 2017-04-28 21:13 | QN ---
Documentation Comment POD #1 Pt doing well and with adequate pain management. No flatus yet but no nausea or vomiting. Pt is aware of bowel sounds. T= 99 BP 122/80 HR 84 Abdomen soft, ND. Dressing clean, dry and intact. Manzo in place and urine is clear. WBC 12.2 Hgb 10.6 BUN/Cr 7/0.92 P: Continue care. Will advance diet and d/c the manzo, and IV to heplock. Colace ordered for tomorrow. Will see how pt is doing tomorrow to decide on when she goes home. CLAY KILGORE MD Apr 28, 2017 21:13
[2017-04-28] MEDS: DOCUSATE SODIUM 100 MG CAP PO SCH (21:33)
[2017-04-29 01:57] VITALS: BP 120/76; PULSE 89; RESP 18
[2017-04-29] MEDS: OXYCODONE/ACETAMINOPHEN (5/325) TAB PO PRN ×2 (06:00→10:10)
[2017-04-29 07:26] VITALS: BP 134/85; RESP 14
[2017-04-29] MEDS: DOCUSATE SODIUM 100 MG CAP PO SCH (09:08)
[2017-04-29] MEDS: LOSARTAN 50 MG TAB PO SCH (09:08)
--- NOTE | 2017-04-29 09:28 | PD.PPDC ---
EXPLOSIVE ORDNANCE MANAGER Discharge Instruction Condition Patient Condition: Good Diet Diet: Resume Regular Diet Activity/Restrictions Activity: Bedrest May be up to bathroom May be up for meals May Shower Restrictions: No Exercising No Lifting No Driving Minimize Walking Minimize Stair-climbing No Sexual Activity Nothing in the Vagina No [place] No Tampons, douche Wound/Drain Care Instructions Wound/Drain Care Instructions: Remove Steri Strips in 2 weeks Follow-up Follow-up with Physician: 2, Week/Weeks Return to clinic for BUSINESS SERVICES ASSISTANT Instructions: Fever greater than 101 Chills Worsening abdominal pain Excessive Vaginal Bleeding Surgical Instructions: Incisional Drainage Incisional Redness CLAY KILGORE MD Apr 29, 2017 09:28
[2017-04-29] MEDS ORDERED: OXYC-438 PO (09:29)
--- NOTE | 2017-04-29 09:33 | DS ---
Date/Time of Note Date/Time of Note DATE: 04/29/17 TIME: 09:30 Discharge Summary Admission/Discharge Info Admit Date/Time Apr 27, 2017 at 06:14 Discharge Date/Time Apr 29, 2017 Discharge Diagnosis Uterine fibroids, right ovarian torsion. Patient Condition: Good Procedures Supracervical hysterectomy, right salpingoophorectomy, left salpingectomy, lysis of adhesions. Hx of Present Illness 46 y.o. A1 with known fibroids and a prior h/o a myomectomy with large fibroids with a uterus measuring 16 cm and moderate to severe pelvic pain, especially acute over the last few days. Hospital Course Large fibroid uterus with severe pelvic pain. Home Meds Active Scripts Ibuprofen* (Motrin*) 800 Mg Tab, 800 MG PO Q6, #30 TAB Prov:SANJIV YOUNGBLOOD PA-C 04/23/17 Reported Medications Losartan Potassium* (Losartan Potassium*) 50 Mg Tablet, 50 MG PO DAILY, TAB 04/27/17 Latanoprost (Latanoprost) 2.5 Ml Drops, 1 DROP BOTH EYES QHS, #1 BOTTLE 08/09/16 Discontinued Reported Medications Multivitamins* (Once Daily*) 1 Tab Tablet 07/11/10 Discontinued Scripts Ondansetron (Ondansetron Odt) 4 Mg Tab.rapdis, 4 MG PO Q6H Y for NAUSEA AND/OR VOMITING, #10 TAB Prov:FAVIAN BANKS PA-C 04/23/17 Hydrocodone/Acetaminophen ([place] 5-325 Tablet) 1 Each Tablet, 1 TAB PO Q6H Y for PAIN, #30 TAB Prov:FAVIAN BANKS PA-C 04/23/17 Follow-up Plan Office in 2 weeks. Primary Care Provider Kayden Quintana MD Time spent on discharge: < 30 minutes Pending Labs Laboratory Tests Test 04/29/17 05:37 Lab Scanned Report [id number] CLAY KILGORE MD Apr 29, 2017 09:33
--- NOTE | 2017-04-30 13:22 | RADRPT ---
Vent Rate: 84 bpm RR Interval: 0 msec SD Interval: 150 msec QRS Duration: 78 msec QT Interval: 356 msec QTC Interval: 420 msec P-R-T [place]: 60 - 42 - 24 degrees Normal sinus rhythm Normal ECG Electronically Signed By: Yonatan Medina [id number]
== END 2017-04-29 11:55 | disposition home or self-care (01) | DRG 742 ==
LOC: REC 06:14 → MS2 13:45
PROVIDERS: ADMIT Obstetrics & Gynecology; ATTEND Obstetrics & Gynecology
PROC: 0UT00ZZ Resection of Right Ovary, Open Approach (ICD-10-PCS; 2017-04-27)
PROC: 0UT70ZZ Resection of Bilateral Fallopian Tubes, Open Approach (ICD-10-PCS; 2017-04-27)
PROC: 0DNW0ZZ Release Peritoneum, Open Approach (ICD-10-PCS; 2017-04-27)
PROC: 0UT90ZL Resection of Uterus, Supracervical, Open Approach (ICD-10-PCS; principal; 2017-04-27 08:00)
DX: D25.9 Leiomyoma of uterus, unspecified (principal); N83.511 Torsion of right ovary and ovarian pedicle; N73.6 Female pelvic peritoneal adhesions (postinfective)
CPT/HCPCS: 74178; 80048; 84703; 85025; 86850; 86900; 86901; 93005; J0690; J1170; J1200; J2175; J2274; J2370; J2405; J3010; J7120; Q9967

== ENCOUNTER → 2017-11-22 | Outpatient (CLI) | END | disposition home or self-care (01) ==

== ENCOUNTER → 2017-12-17 | Outpatient (CLI) | END | disposition home or self-care (01) ==

== ENCOUNTER → 2019-03-24 | Outpatient (CLI) | payer BC ==
[~2019-03-24] MED LIST changes: -HYDR-906 PO; -IBUP800T25 PO; +IBUP800T48 PO; -LATA2.5D2 BOTH EYES; +LOSA50TA14 PO; -MULT-552; -ONDA4TAB14 PO
== END | disposition home or self-care (01) ==
LOC: LAB 09:22
PROVIDERS: ATTEND Internal Medicine
DX: R73.03 Prediabetes (principal); E78.5 Hyperlipidemia, unspecified; M10.9 Gout, unspecified; M19.031 Primary osteoarthritis, right wrist
CPT/HCPCS: 80053; 80061; 83036; 84560; 85025